=== PATIENT | female | born 2000 | race Caucasian/White ===

== ENCOUNTER 2022-09-23 15:13 | Emergency (ER) | payer BC, SELFPAY ==
[2022-09-23 15:26] VITALS: BP 115/78; PULSE 103; RESP 16; TEMP 37.4; O2SAT 100
--- NOTE | 2022-09-23 15:58 | ED.GENADULT ---
HPI - General Adult General Chief complaint: Skin/Abscess/Foreign Body Stated complaint: Insect Bite Source: patient Mode of arrival: ambulatory Limitations: no limitations History of Present Illness HPI narrative: PATIENT PRESENTS FOR EVALUATION OF LESIONS TO THE SKIN THAT SHE NOTED 2 DAYS AGO. LAST SATURDAY SHE SPENT SOME TIME ON HER PROPERTY OF TEN ACRES. THE FOLLOWING DAY SHE NOTED SOME ERYTHEMATOUS LESIONS TO THE LOWER EXTREMITIES. TWO DAYS AGO SHE NOTED A TICK ON THE POSTERIOR ASPECT OF THE RIGHT LOWER EXTREMITY. SHE REMOVED THE TICK AT THAT TIME. SHE BELIEVES THE LESIONS RELATED TO TICK BITES. SHE REPORTS SOME ASSOCIATED PRURITUS. NO FEVER, CHILLS, NAUSEA, VOMITING, DRAINAGE FROM THE AFFECTED AREA. SHE ALSO DENIES ANY HEADACHE, LYMPHADENOPATHY, MYALGIAS OR FATIGUE. Related Data Allergies Allergy/AdvReac Type Severity Reaction Status Date / Time No Known Allergies Allergy Verified 09/23/22 15:39 Review of Systems Review of Systems: CONSTITUTIONAL: DENIES FEVER, CHILLS, OR SWEATS. EYES: DENIES VISUAL CHANGES, REDNESS, OR DISCHARGE. ENT: DENIES RHINORRHEA, CONGESTION, SORE THROAT, OR OTALGIA. CARDIOVASCULAR: DENIES CHEST PAIN, PALPITATIONS, OR EDEMA. RESPIRATORY: DENIES COUGH OR DYSPNEA. GASTROINTESTINAL: DENIES ABDOMINAL PAIN, NAUSEA, VOMITING, OR DIARRHEA. GENITOURINARY: DENIES DYSURIA OR HEMATURIA. SKIN: REPORTS PRURITIC LESIONS TO BILATERAL LOWER EXTREMITY MUSCULOSKELETAL: DENIES BACK PAIN, JOINT PAIN, OR MYALGIA. NEUROLOGIC: DENIES HEADACHE, NUMBNESS, DIZZINESS, OR WEAKNESS. PSYCHIATRIC: DENIES ANXIETY OR DEPRESSION. PMFSH Past Medical History Medical History No pertinent past medical history Surgical History Surgical History No pertinent past surgical history Family History Family History Mother Family history non-contributory Social History Social History Smoking status: Never smoker Substance use: never Gender identity (if verbalized by the patient): Female Spiritual care concerns: No Exam Narrative: GENERAL: WELL-APPEARING, WELL-NOURISHED, AND IN NO ACUTE DISTRESS. HEAD: NORMOCEPHALIC, ATRAUMATIC. EYES: PERRLA AND EOMI. ENT: NARES CLEAR, NO RHINORRHEA OR EPISTAXIS. MUCOUS MEMBRANES MOIST. 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 BILATERAL TMS PEARLY FULLER NONBULGING NECK: SUPPLE. NO ADENOPATHY OR MASSES. NO CAROTID BRUITS OR JVD CHEST: CLEAR TO AUSCULTATION. NO RESPIRATORY DISTRESS. NO WHEEZES RALES OR RHONCHI HEART: REGULAR RATE AND RHYTHM. NO MURMUR HEARD. NORMAL PERIPHERAL PULSES. ABDOMEN: SOFT, NONTENDER, NONDISTENDED, NORMAL ACTIVE BOWEL SOUNDS. EXTREMITIES: NORMAL RANGE OF MOTION. NO EDEMA. SKIN: 5 MM ANNULAR ERYTHEMATOUS FLAT LESION TO THE RIGHT ANTERIOR PELVIS. THERE IS A 1 CM ANNULAR AREA OF ERYTHEMA TO THE POSTERIOR ASPECT OF THE RIGHT THIGH. THERE IS A 1 CM ANNULAR AREA OF ERYTHEMA WITH SOME PURPLE COLORATION TO THE POSTERIOR ASPECT OF THE RIGHT KNEE. THERE IS AN APPROXIMATELY 7 MM AREA OF ANNULAR ERYTHEMA/PURPLE COLORATION NOTED TO THE LATERAL ASPECT THE LEFT LOWER LEG. THERE IS AN APPROXIMATELY 1 CM ANNULAR AREA OF ERYTHEMA TO THE LEFT BUTTOCK NEURO: NO FOCAL DEFICITS. ALERT AND ORIENTED X3. PSYCH: NORMAL MOOD AND AFFECT. Course Course Emergency Course: THIS IS A 22-YEAR-OLD FEMALE WHO PRESENTED FOR EVALUATION OF SKIN LESIONS TO BILATERAL LOWER EXTREMITIES. SHE WOULD MEET CRITERIA FOR 10 DAY COURSE OF DOXYCYCLINE. ADVISE SHE FOLLOW UP CLOSELY WITH PRIMARY CARE OUTPATIENT. SHE SHOULD GO TO THE EMERGENCY DEPARTMENT FOR DIFFICULTY BREATHING OR SWELLING. PATIENT IN AGREEMENT PLAN CARE PER Level of Care: Express Care Visit Vital Signs Vital signs: Vital Signs Temperature 37.4 C 09/23/22 15:26 Pul
== END 2022-09-23 16:00 | disposition home or self-care (01) ==
PROVIDERS: Emergency Provider Nurse Practitioner
DX: A26.0 Cutaneous erysipeloid (principal)
CPT/HCPCS: 99211; G0463